=== PATIENT | female | born 1980 | race Caucasian/White ===

== ENCOUNTER 2022-10-15 13:53 | Outpatient (CLI) | payer BC, SELFPAY ==
[2022-10-15 17:12] LABS: D Dimer 1.61 ug/mIFEU (0-0.59)
== END 2022-10-15 13:54 | disposition home or self-care (01) ==
LOC: LAB 13:58
PROVIDERS: Visit Provider Nurse Practitioner Family
DX: R06.02 Shortness of breath (principal)
CPT/HCPCS: 85378

== ENCOUNTER 2022-10-15 18:46 | Emergency (ER) | payer BC, SELFPAY ==
--- NOTE | 2022-10-15 18:51 | XRR_ITS ---
PROCEDURE INFORMATION: Exam: XR Chest Exam date and time: 10/15/2022 7:18 PM Age: 42 years old Clinical indication: Shortness of breath; Patient HX: Short of breath; Dyspnea x 1 week; Additional info: SOB TECHNIQUE: Imaging protocol: Radiologic exam of the chest. Views: 1 view. COMPARISON: No relevant prior studies available. FINDINGS: Lungs: Unremarkable. No consolidation. Pleural spaces: Unremarkable. No pleural effusion. No pneumothorax. Heart/Mediastinum: Unremarkable. No cardiomegaly. Bones/joints: Unremarkable. XR/XR chest 1V portable [id number] IMPRESSION: No acute findings.
[2022-10-15 19:02] VITALS: BP 107/78; PULSE 93; RESP 26; TEMP 36.4; O2SAT 100; BMI 24.0
--- NOTE | 2022-10-15 19:07 | ECG_ITS ---
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 Measurements Intervals [place] Rate: 76 P: 62 MO: 164 QRS: 56 QRSD: 92 T: -49 QT: 403 QTc: 456 Interpretive Statements SINUS RHYTHM ST DEVIATION AND MODERATE T-WAVE ABNORMALITY, CONSIDER ANTEROLATERAL ISCHEMIA [-0.1+ mV T-WAVE IN V3-V6] ST DEVIATION AND MODERATE T-WAVE ABNORMALITY, CONSIDER INFERIOR ISCHEMIA [-0.1+ mV T-WAVE IN II/aVF] No previous ECG available for comparison Electronically Signed On 10-16-2022 23:58:39 CRATE REPAIRER by Giorgi Welsh M.D. [id number] f
--- NOTE | 2022-10-15 20:05 | ED_ITS ---
HPI - SOB/Dyspnea General: Chief Complaint: Shortness of Breath/Dyspnea Stated Complaint: Sent By Dr Ashok Chavez Lungs Time Seen by Provider: 10/15/22 20:05 History of Present Illness: HPI Narrative: Ms. Li is a 42-year-old lady without significant past medical history presenting to the emergency department due to respiratory cyst symptoms and abno rmal lab. She reports symptom onset 5 or 6 days ago and gradual initially with some substernal chest discomfort. She subsequently developed cough, fevers, chills and continued chest pain along with shortness of breath. Chest pain is worse with exertion and deep inspiration. She went to clinic and was prescribed what sounds like steroids and antibiotics however developed nausea and vomiting after taking the antibiotics for 2 days. Return to clinic today and labs were drawn showing elevated D-dimer. Overall intensity symptoms is moderate to severe. Patient becomes markedly dyspneic with minimal exertion. Denies similar episodes in the past or known underlying lung disease. No other sp ecific changes in health, exacerbating, or alleviating factors identified. Onset (ago): day(s) Timing: progressively worsening Severity: severe Exacerbating factors: exertion, coughing and inspiration Relieving factors: nothing Associated symptoms: Reports abdominal pain, chest pain, cough, fever(s), nausea and vomiting Review of Systems General: Reports: 10 or more systems reviewed and unremarkable except in HPI and below Const: Reports: fever(s) Card: Reports: chest pain GI: Reports: abdominal pain, nausea and vomiting [facility] ED PFSH: Medical History No significant past medical history Social History Smoking and tobacco status: never smoked Female Reproductive History: Date of last menstrual period: 10/14/22 Physical Exam Const: COMMON NORMALS: alert GENERAL APPEARANCE: cooperative, well devel oped and ill appearing HENMT: COMMON NORMALS: normocephalic and atraumatic HEAD & SCALP: normocephalic and atraumatic Eye: COMMON NORMALS: conjunctivae normal CONJUNCTIVA: Yes conjunctivae normal SCLERA: sclerae normal Neck/C-Spine: COMMON NORMALS: supple GENERAL: Yes trachea midline Resp: COMMON NORMALS: clear to auscultation bilaterally EFFORT & INSPECTION: Yes tachypneic and Yes respiratory distress AUSCULTATION: clear to auscultation bilaterally Cardio: COMMON NORMALS: regular rate RATE: regular rate GI: COMMON NORMALS: Soft to palpation PALPATION: Yes Soft to palpation, Yes Tenderness to palpation present (GI), No Guarding due to palpation present (GI) and No Rigid due to palpation PERCUSSION: normal to percussion Extremity: GENERAL: Yes normal exam except as noted and No edema Neuro: COMMON NORMALS: moves all extremities SENSORIUM/ORIENTATION: Yes alert and No Orientation impaired Psych: COMMON NORMALS: mental status grossly normal and Normal thought process present THOUGHT PROCESS: Normal thought process present Course Vital Signs: Vital signs: Vital Signs Temperature 97.6 F 10/15/22 19:02 Pulse Rate 80 10/15/22 23:41 Respiratory Rate 18 10/15/22 23:41 Blood Pressure 148/74 10/15/22 23:41 Pulse Oximetry 100 10/15/22 23:41 Oxygen Delivery Me thod 10/15/22 21:53 MDM - SOB/Dyspnea Medical Decision Making 42-year-old lady presenting with shortness of breath and respiratory symptoms with concern over elevated D-dimer in the outpatient setting. Exam as above. EKG shows sinus rhythm with nonspecific ST segment abnormalities, no STEMI. Labs notable for leukopenia, normal hemoglobin. Metabolic panel with dehyd ration and hypokalemia. Transaminitis is present. Influenza type a H3 positive. Chest x-ray with no lobar consolidation or pneumothorax. Given severity of symptoms and outside elevated D-dimer I believe that additional imaging is appropriate. There is no evidence of pulmonary embolism, there is some evidence of enteritis. The patient appears and feels improved with steroids, fluids, RT treatment. I discussed possible disposition options. Patient is comfortable with outpatient management with strict return precautions. The results of ED evaluation were discussed with the patient including prescriptions and/or symptomatic cares (if applicable) including appropriate and responsible use, followup plan, and return precautions. The patient verbalized understanding and felt safe for discharge. Medical Records I reviewed the patient's medical records. Lab Data I reviewed the patient's lab results. 10/15/22 20:29 10/15/22 20:29 Labs/Radiology: Radiology Impressions Chest X-Ray 10/15/22 18:51 IMPRESSION: No acute findings. Chest/Abdomen/Pelvis CT 10/15/22 20:16 IMPRESSION: 1. Negative for pulmonary embolus or airspace infiltrate. 2. Mild emphysematous changes suspected. IMPRESSION: 1. Prominent fluid-filled bowel loops with some areas of wall thickening suggestive of an enteritis. 2. Small amount of nonspecific free fluid in the deep pelvis. Laboratory Results WBC 1.9 10^3/uL (4.0-10.0) L 10/15/22 20: RBC 5.12 10^6/uL (4.1-5.3) 10/15/22 20: Hgb 14.9 g/dL (11.5-15.3) 10/15/22: Hct 44.0 % (37.0-47.0) 10/15/22 20: MCV 85.9 fl (81-99) 10/15/22: MCH 29.1 pg (28.0-34.0) 10/15/22 MCHC 33.9 g/dL (30.0-36.0) 10/15/22: RDW 13.0 % (12.1-15.1) 10/15/22: Plt Count 215 10^3/cmm (130-400) 10/15/22: MPV 10.7 fL (7.4-10.4) H 10/15/22: Neut % (Auto) 53.6 % 10/15/22: Lymph % (Auto) 40.1 % 10/15/22: [place] % (Auto) 5.3 % 10/15/22 20: Eos % (Auto) 0.0 % 10/15/22: Baso % (Auto) 0.5 % 10/15/22 Neut # (Auto) 1.00 10^3/uL (1.8-7.7) L 10/15/22: Lymph # (Auto) 0.8 10^3/uL (0.8-4.8) 10/15/22 20: [place] # (Auto) 0.1 10^3/uL (0.2-0.9) L 12/12/22 20:29 Eos # (Auto) 0.0 10^3/uL (0.0-0.8) 10/15/22 20: Baso # (Auto) 0.0 10^3/uL (0.0-0.1) 10/15/22 20:29 Nucleated RBC % (auto) 0 % 10/15/22 20: Nucleated RBCs # 0.0 /100WBC 10/15/22 20: Sodium 129 mmol/L (136-145) L 10/15/22 20: Potassium 3.0 mmol/L (3.5-5.1) L 10/15/22 20:29 Chloride 95 mmol/L (98-107) L 10/15/22 20: Carbon Dioxide 18 mmol/L (22-29) L 10/15/22 20: Anion Gap 19.0 (5-19) 10/15/22 20: BUN 10 mg/dL (6-20) 10/15/22 20: Creatinine 0.5 mg/dL (0.5-0.9) 10/15/22 20: GFR Calculation 134.0 mL/min (90-130) H 10/15/22 20: Glucose 120 mg/dL (65-115) H 10/15/22 20: Calculated Osmolality 268 mOsm/kg (285-295) L 10/15/22 20: Calcium 9.1 mg/dL (8.5-10.5) 10/15/22 20: Total Bilirubin 0.2 mg/dL (0.15-1.2) 10/15/22 20: AST 113 U/L (0-32) H 10/15/22 20:29 ALT 107 U/L (0-33) H 10/15/22 20:29 Alkaline Phosphatase 77 U/L (35-105) 10/15/22 20:29 NT-Pro-B Natriuret Pep 21 pg/mL (0-125) 10/15/22 20: Total Protein 7.8 g/dL (6.6-8.7) 10/15/22 20: Albumin 4.3 g/dL (3.5-5.2) 10/15/22 20: Globulin 3.5 g/dL (1.3-4.6) 10/15/22 20:29 Lipase 15 U/L (13-60) 10/15/22 20:29 Nasal Influ A H1 2009 PCR Not detected (NOT DETECT) 10/15/22 20:55 Adenovirus (PCR) Not detected (NOT DETECT) 10/15/22 20:55 C. pneumoniae DNA (PCR) Not detected (NOT DETECT) 10/15/22 20:55 Coronavirus 229E (PCR) Not detected (NOT DETECT) 10/15/22 20:55 Human Metapneumovir PCR Not detected (NOT DETECT) 10/15/22 20:55 Influenza A (H1) PCR Not detected (NOT DETECT) 10/15/22 20:55 Influenza A (H3) PCR Detected (NOT DETECT) A 10/15/22 20:55 Influenza Type A (PCR) Detected (NOT DETECT) A 10/15/22 20:55 Influenza Type B (PCR) Not detected (NOT DETECT) 10/15/22 20:55 M. pneumoniae (PCR) Not detected (NOT DETECT) 10/15/22 20:55 Parainfluenza 1 (PCR) Not detected (NOT DETECT) 10/15/22 20:55 Parainfluenza 2 (PCR) Not detected (NOT DETECT) 10/15/22 20:55 Parainfluenza 3 (PCR) Not detected (NOT DETECT) 10/15/22 20:55 Parainfluenza 4 (PCR) Not detected (NOT DETECT) 10/15/22 20:55 RSV Type A (PCR) Not detected (NOT DETECT) 10/15/22 20:55 RSV Type B (PCR) Not detected (NOT DETECT) 10/15/22 20:55 Entero/Rhino (PCR) Not detected (NOT DETECT) 10/15/22 20:55 SARS-CoV-2 (PCR) Not detected (NOT DETECT) 10/15/22 20:55 Discharge Plan Discharge Patient Disposition: Home Clinical Impression: Influenza A, Leukopenia, Enteritis, Hyponatremia, Hypokalemia, Dehydration, Transaminitis Condition: Stable Prescriptions: New albuterol sulfate 90 mcg/actuation HFA aerosol inhaler 2 inh inhalation Q4H PRN (Reason: shortness of breath or wheezing) Qty: 8.5 0RF Discharge Orders: Discharge ED (Routine); Ordered 10/15/22 Ordered By: Manan Kolm Discharge Diet: Usual diet Discharge Activity: Increase activity as tolerated Patient Instructions: Oseltamivir (By mouth), Influenza (ED), Enteritis (ED), Pain Management Activity Restrictions/Additional Instructions: Thank you for visiting the emergency department. You were seen and evaluated for respiratory distress. The most likely cause of your symptoms is influenza. I will prescribe Tamiflu, you may continue to use your other previously prescribed medications as discussed. I will also prescribe an inhaler. Please ensure that you are staying hydrated with a electrolyte containing solution. Given laboratory abnormalities I do recommend repeat laboratory studies in 1 to 2 weeks to ensure normalization of liver enzymes and electrolytes. Please return to the emergency department for worsening symptoms, inability to tolerate oral intake, oxygen saturation at rest less than 90%, or anything else that you are concerned about a feel needs emergency department evaluation. 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
[2022-10-15 20:10] VITALS: BP 135/82; PULSE 67; RESP 18; O2SAT 100
--- NOTE | 2022-10-15 20:16 | CTR_ITS ---
PROCEDURE INFORMATION: Exam: CTA Chest With Contrast Exam date and time: 10/15/2022 8:59 PM Age: 42 years old Clinical indication: Pain and abnormal findings; Abnormal lab test; Other: N/a; Nausea and vomiting; Abdominal pain; Abnormal diagnostic tests; Elevated d-dimer; Shortness of breath; Chest pressure; Prior surgery; Surgery type: Tubal ligation; Patient HX: C/O chest /epigastric pain with SOB and n/v. Elevated d dimer per pcp. ; Additional info: SOB, n/v, epigastric and chest pain, elevated d dimer TECHNIQUE: Imaging protocol: Computed tomographic angiography of the chest with contrast. 3D rendering (Not supervised by radiologist): MIP and/or 3D reconstructed images were created by the technologist. Radiation optimization: All CT scans at this facility use at least one of these dose optimization techniques: automated exposure control; mA and/or kV adjustment per patient size (includes targeted exams where dose is matched to clinical indication); or iterative reconstruction. Contrast material: OMNI 350; Contrast volume: 100 ml; Contrast route: INTRAVENOUS (IV); COMPARISON: CR (CHEST, ) 10/15/2022 7:18 PM RADIATION DOSE METRICS: Total DLP (mGy-cm): 581.18 FINDINGS: Pulmonary arteries: Normal. No pulmonary emboli. Aorta: Unremarkable. No aortic aneurysm. No aortic dissection. Lungs: Mild emphysematous changes suspected. Pleural spaces: Unremarkable. No pneumothorax. No pleural effusion. Heart: Unremarkable. No cardiomegaly. No pericardial effusion. Lymph nodes: Unremarkable. No enlarged lymph nodes. Bones/joints: Unremarkable. No acute fracture. Soft tissues: Unremarkable. PROCEDURE INFORMATION: Exam: CT Abdomen And Pelvis With Contrast Exam date and time: 10/15/2022 8:59 PM Age: 42 years old Clinical indication: Pain and abnormal findings; Abnormal lab test; Other: N/a; Nausea and vomiting; Abdominal pain; Abnormal diagnostic tests; Elevated d-dimer; Shortness of breath; Chest pressure; Prior surgery; Surgery type: Tubal ligation; Patient HX: C/O chest /epigastric pain with SOB and n/v. Elevated d dimer per pcp. ; Additional info: SOB, n/v, epigastric and chest pain, elevated d dimer TECHNIQUE: Imaging protocol: Computed tomography of the abdomen and pelvis with contrast. Radiation optimization: All CT scans at this facility use at least one of these dose optimization techniques: automated exposure control; mA and/or kV adjustment per patient size (includes targeted exams where dose is matched to clinical indication); or iterative reconstruction. Contrast material: OMNI 350; Contrast volume: 100 ml; Contrast route: INTRAVENOUS (IV); COMPARISON: CR (CHEST, ) 10/15/2022 7:18 PM RADIATION DOSE METRICS: Total DLP (mGy-cm): 581.18 FINDINGS: Liver: Normal. No mass. Gallbladder and bile ducts: Normal. No calcified stones. No ductal dilation. Pancreas: Normal. No ductal dilation. Spleen: Normal. No splenomegaly. Adrenal glands: Normal. No mass. Kidneys and ureters: Normal. No hydronephrosis. Stomach and bowel: Prominent fluid-filled bowel loops with some areas of wall thickening suggestive of an enteritis. Appendix: No evidence of appendicitis. Intraperitoneal space: Small amount of nonspecific free fluid in the deep pelvis. Vasculature: Unremarkable. No abdominal aortic aneurysm. Lymph nodes: Unremarkable. No enlarged lymph nodes. Urinary bladder: Unremarkable as visualized. Reproductive: Unremarkable as visualized. Bones/joints: Unremarkable. No acute fracture. Soft tissues: Unremarkable. CT/CT angio chest w abd pel w con IMPRESSION: 1. Negative for pulmonary embolus or airspace infiltrate. 2. Mild emphysematous changes suspected. IMPRESSION: 1. Prominent fluid-filled bowel loops with some areas of wall thickening suggestive of an enteritis. 2. Small amount of nonspecific free fluid in the deep pelvis.
[2022-10-15 20:39] LABS: Basophils % 0.5 %; Hemoglobin 14.9 g/dL (11.5-15.3); Lymphocytes # 0.8 10^3/uL (0.8-4.8); Lymphocytes % 40.1 %; Mean Corpuscular HGB Conc 33.9 g/dL (30.0-36.0); Mean Corpuscular Hemoglobin 29.1 pg (28.0-34.0); Mean Corpuscular Volume 85.9 fl (81-99); Mean Platelet Volume 10.7 fL (7.4-10.4); Monocytes # 0.1 10^3/uL (0.2-0.9); Monocytes % 5.3 %; Neutrophils % 53.6 %; Nucleated Red Blood Cells % 0 %; Platelet Count 215 10^3/cmm (130-400); Red Blood Count 5.12 10^6/uL (4.1-5.3); White Blood Count 1.9 10^3/uL (4.0-10.0)
[2022-10-15] MEDS: iohexol 350 mg/mL 500 mL Btl (per mL) IV (21:17)
[2022-10-15] MEDS: sodium chloride 0.9% 1,000 ML 999 ML IV (21:29)
[2022-10-15 21:30] LABS: Alanine Aminotransferase 107 U/L (0-33); Albumin Level 4.3 g/dL (3.5-5.2); Alkaline Phosphatase 77 U/L (35-105); Aspartate Amino Transferase 113 U/L (0-32); Blood Urea Nitrogen 10 mg/dL (6-20); Calcium 9.1 mg/dL (8.5-10.5); Carbon Dioxide 18 mmol/L (22-29); Chloride 95 mmol/L (98-107); Globulin 3.5 g/dL (1.3-4.6); Glucose 120 mg/dL (65-115); Lipase 15 U/L (13-60); NT Pro B Type Natriuretic Pept 21 pg/mL (0-125); Osmolality Calculated 268 mOsm/kg (285-295); Sodium 129 mmol/L (136-145); Total Bilirubin 0.2 mg/dL (0.15-1.2); Total Protein 7.8 g/dL (6.6-8.7)
[2022-10-15] MEDS: ipratropium-albuterol 3 mL Neb INHALATION (21:50)
[2022-10-15 21:53] VITALS: PULSE 67; RESP 14; O2SAT 98
[2022-10-15 21:56] LABS: Slide Review Slide Review Perform
[2022-10-15] MEDS: potassium chloride ER 20 mEq Tablet 40 MEQ PO (22:37)
[2022-10-15 22:40] LABS: Adenovirus Not Detected (NOT DETECT); Chlamydia Pneumoniae Not Detected (NOT DETECT); Coronavirus 229E,HKU1,NL63,OC4 Not Detected (NOT DETECT); Human Metapneumovirus Not Detected (NOT DETECT); Human Rhinovirus/Enterovirus Not Detected (NOT DETECT); Influenza A Detected (NOT DETECT); Influenza A H1 Not Detected (NOT DETECT); Influenza A H1-2009 Not Detected (NOT DETECT); Influenza A H3 Detected (NOT DETECT); Influenza B Not Detected (NOT DETECT); Mycoplasma Pneumoniae Not Detected (NOT DETECT); Parainfluenza Virus Type 1 Not Detected (NOT DETECT); Parainfluenza Virus Type 2 Not Detected (NOT DETECT); Parainfluenza Virus Type 3 Not Detected (NOT DETECT); Parainfluenza Virus Type 4 Not Detected (NOT DETECT); Respiratory Syncytial Virus A Not Detected (NOT DETECT); Respiratory Syncytial Virus B Not Detected (NOT DETECT); SARS-COV-2 Not Detected (NOT DETECT)
[2022-10-15 23:41] VITALS: BP 148/74; PULSE 80; RESP 18; O2SAT 100
== END 2022-10-15 23:41 | disposition home or self-care (01) ==
PROVIDERS: Emergency Medicine; Emergency Provider Emergency Medicine
DX: J10.1 Influenza due to other identified influenza virus with other respiratory manifestations (principal); D72.819 Decreased white blood cell count, unspecified; K52.9 Noninfective gastroenteritis and colitis, unspecified; E87.1 Hypo-osmolality and hyponatremia; E87.6 Hypokalemia; E86.0 Dehydration; R74.01 Elevation of levels of liver transaminase levels
CPT/HCPCS: 71045; 71275; 74177; 80053; 83690; 83880; 85025; 87486; 87581; 87633; 93005; 94640; 96361; 96374; 99285; J2930; J7030; Q9967